=== PATIENT | female | born 1980 | race Hispanic/Latino ===

== ENCOUNTER 2018-10-30 16:03 | Emergency (ER) | payer OTHER ==
[~2018-10-30] VITALS: Ht 167.6 cm; Wt 98.9 kg
--- NOTE | 2018-10-30 16:29 | NUR ---
NOTIFIED [facility] TO PAGE ULTRASOUND FOR GALBLADDER ULTRASOUND.
[2018-10-30 16:39] LABS: BILIRUBIN,URINE NEGATIVE (NEGATIVE); CLARITY,URINE SL CLOUDY (CLEAR); COLOR,URINE YELLOW (YELLOW); KETONES,URINE TRACE (NEGATIVE); LEUKOCYTE ESTERASE ,URINE TRACE (NEGATIVE); NITRITE,URINE NEGATIVE (NEGATIVE); PROTEIN,URINE DIPSTICK NEGATIVE (NEGATIVE); URINE UROBILINOGEN 0.2 mg/dL (0.2 - 1)
[2018-10-30 16:46] LABS: BACTERIA,URINE FEW /HPF; EPITHELIAL CELLS,URINE MODERATE /LPF; RBC,URINE 0-5 /HPF (0-5)
--- NOTE | 2018-10-30 18:08 | NUR ---
PT REQUESTING TO LEAVE AMA; [facility] [place] DISCUSSING RISKS AND BENEFITS OF LEAVING AMA DURING EVAL, PT VERBALIZES UNDERSTANDING AT THIS TIME, PT STATES "I JUST DON'T WANT THEM TAKING BLOOD BEFORE THE ULTRASOUND RIGHT NOW"; PT AND [employer] [place] IN AGREEMENT TO HAVE SONOGRAM BEFORE IMPLEMENTING FURTHER INTERVENTIONS AT THIS TIME, PT AND FAMILY VERBALIZE UNDERSTANDING OF CURRENT PLAN OF CARE.
--- NOTE | 2018-10-30 18:09 | NUR ---
PRESS SET UP PERSON AT BEDSIDE FOR ULTRASOUND AT THIS TIME.
--- NOTE | 2018-10-30 18:51 | Diagnostic Imaging Report ---
EXAM: Right Upper Quadrant Ultrasound INDICATION: ^ABD PAIN ^Y COMPARISON: None. TECHNIQUE: Transverse and longitudinal images of the right upper abdomen were obtained. FINDINGS: Liver: Size: 14 cm in the right midclavicular line, normal Appearance: Increased echogenicity, smooth contour Mass: No focal masses Gallbladder: Stones/Sludge: Multiple gallstones. Wall: 0.2 cm Appearance: No pericholecystic fluid or hydrops. Sonographic Garcia's Sign: Negative Bile Ducts: Intrahepatic Ducts: No dilatation Extrahepatic Ducts: Common bile duct measures 0.4 cm, no dilatation Pancreas: Visualized pancreas is unremarkable. Right Kidney: Size: 11.7 cm Echogenicity: Normal Parenchymal thickness: Normal Collecting system: No hydronephrosis Stones: None Cyst/Mass: None Vessels: Aorta: Visualized portions are normal Inferior Vena Cava: Visualized portions are normal Main Portal Vein: 1.1 cm, normal size with hepatopetal flow. Free Fluid: No ascites or pleural effusion IMPRESSION: Hepatic steatosis. Cholelithiasis without evidence of cholecystitis. Signed by: Dr. Arthur Pollard MD on 10/30/2018 6:47 PM
[2018-10-30 20:18] VITALS: BP 123/76
[2018-11-10] MEDS ORDERED: METFORMIN HCL500 MG PO (10:16)
[2018-11-10] MEDS ORDERED: DIOVAN HCT 80-1 EACH PO (10:16)
[2018-11-10] MEDS ORDERED: trulicity SC (10:16)
== END 2018-10-30 20:10 | disposition home or self-care (01) ==
LOC: ER 16:03
DX: R10.11 Right upper quadrant pain (principal); R11.2 Nausea with vomiting, unspecified; R19.7 Diarrhea, unspecified; K80.70 Calculus of gallbladder and bile duct without cholecystitis without obstruction; I10 Essential (primary) hypertension; E11.9 Type 2 diabetes mellitus without complications
CPT/HCPCS: 76705; 81001; 93005; 99283

== ENCOUNTER → 2018-11-12 | Day surgery (SDC) | payer OTHER ==
[2018-11-10 11:11] LABS: BILIRUBIN,URINE NEGATIVE (NEGATIVE); CLARITY,URINE CLEAR (CLEAR); COLOR,URINE YELLOW (YELLOW); KETONES,URINE NEGATIVE (NEGATIVE); LEUKOCYTE ESTERASE ,URINE TRACE (NEGATIVE); NITRITE,URINE NEGATIVE (NEGATIVE); PROTEIN,URINE DIPSTICK NEGATIVE (NEGATIVE); URINE UROBILINOGEN 0.2 mg/dL (0.2 - 1)
[2018-11-10 11:18] LABS: BASOPHILS % 0.2 % (0.0-1.0); EOSINOPHILS # (AUTO) 0.1 (0.0-0.4); EOSINOPHILS % 1.4 % (0.0-6.0); HEMATOCRIT 39.1 % (34.2-44.1); HEMOGLOBIN 13.2 g/dL (12.0-16.0); LYMPHOCYTES # (AUTO) 1.2 (1.0-3.2); LYMPHOCYTES % 21.8 % (18.0-39.1); MEAN CORPUSCULAR HEMOGLOBIN 28.6 pg (28-32); MEAN CORPUSCULAR HGB CONC 33.8 g/dL (31-35); MEAN CORPUSCULAR VOLUME 84.6 fL (81-99); MONOCYTES # (AUTO) 0.4 (0.2-0.8); MONOCYTES % 7.4 % (4.4-11.3); NEUTROPHILS # (AUTO) 3.8 (2.1-6.9); NEUTROPHILS % 68.8 % (38.7-80.0); PLATELET COUNT 276 x10e3/uL (140-360); RED BLOOD COUNT 4.62 x10e6/uL (3.6-5.1); RED CELL DISTRIBUTION WIDTH 11.9 % (11.7-14.4)
[2018-11-10 11:38] LABS: ALANINE AMINOTRANSFERASE 33 IU/L (0-55); ALBUMIN 4.3 g/dL (3.5-5.0); ALBUMIN/GLOBULIN RATIO 1.3 (0.8-2.0); ALKALINE PHOSPHATASE 60 IU/L (40-150); ANION GAP 12.4 mmol/L (8-16); BLOOD UREA NITROGEN 9 mg/dL (7-26); BUN/CREATININE RATIO 12 (6-25); CALCIUM 9.5 mg/dL (8.4-10.2); CARBON DIOXIDE 29 mmol/L (22-29); CHLORIDE 101 mmol/L (98-107); CREATININE, SERUM 0.74 mg/dL (0.57-1.11); EST GLOMERULAR FILTRATION RATE > 60 ML/MIN (60-); GLUCOSE 117 mg/dL (74-118); POTASSIUM 4.4 mmol/L (3.5-5.1); SODIUM 138 mmol/L (136-145)
[~2018-11-12] MED LIST: BUPIVACAINE 0.25%/EPI 30ML SDV INJ ONE; DEXAMETHASONE SOD PHOS INJ 4 MG/ML VIAL ONE; DIOVAN HCT 80-1 EACH PO; FENTANYL CITRATE/PF 100MCG/2 ML INJ ONE; KETOROLAC TROMETHAMINE 30 MG/ML VIAL ONE; LIDOCAINE HCL 2% LOCAL INJ 5 ML SDV VIAL INJ ONE; METFORMIN HCL500 MG PO; METOCLOPRAMIDE HCL 10 MG/2ML VIAL ONE; MIDAZOLAM HCL 2 MG/2 ML VIAL ONE; ONDANSETRON HCL INJ 2MG/ML 2ML 2 MG/ML VIAL ONE; PROPOFOL IV EMULSION 10 MG/ML 20 ML VIAL ONE; ROCURONIUM BROMIDE 10 MG/ML 5ML VIAL ONE; SEVOFLURANE INHAL SOLN 250 ML PEN BTL ONE; trulicity SC
--- OUTSIDE RECORDS SUMMARY | 2018-11-12 06:58 | XMS REPORT ---
[facility] Address Unknown Phone Unavailable Care Team Providers Care Heel Seat Flap Stapler Name Role Phone APARNA Kelvin JEANETTE Unavailable Unavailable Problems This patient has no known problems. Allergies, Adverse Reactions, Alerts This patient has no known allergies or adverse reactions. Medications This patient has no known medications. 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 TECHNIQUE: Transverse and longitudinal images of the right upper abdomen were obtained. FINDINGS: Liver: Size: 14 cm in the right midclavicular line, normal Appearance: Increased echogenicity, smooth contour Mass: No focal masses Gallbladder: Stones/Sludge: Multiple gallstones. Wall: 0.2 cm Appearance: No pericholecystic fluid or hydrops. Sonographic Garcia's Sign: Negative Bile Ducts: Intrahepatic Ducts: No dilatation Extrahepatic Ducts: Common bile duct measures 0.4 cm, no dilatation Pancreas: Visualized pancreas is unremarkable. Right Kidney: Size: 11.7 cm Echogenicity: Normal Parenchymal thickness: Normal Collecting system: No hydronephrosis Stones: None Cyst/Mass: None Vessels: Aorta: Visualized portions are normal Inferior Vena Cava: Visualized portions are normal Main Portal Vein: 1.1 cm, normal size with hepatopetal flow. Free Fluid: No ascites or pleural effusion IMPRESSION: Hepatic steatosis. Cholelithiasis without evidence of cholecystitis. Signed by: Dr. Arthur Lott MD on 10/30/2018 6:47 PM Dictated By: ARTHUR LOTT MD 46 Transcribed By: MATTEO on 10/30/181846 COPY TO: JALYN POLANCO NP
[2018-11-12] MEDS: HYDROMORPHONE 2MG/ML 2 MG/ML ML ONE (11:26)
[2018-11-12] MEDS: ACETAMINOPHEN/CODEINE 300MG - 30MG TAB ONE (11:54)
[2018-11-12] MEDS: ONDANSETRON HCL INJ 2MG/ML 2ML 2 MG/ML VIAL ONE (12:11)
[2018-11-12 12:25] VITALS: BP 137/76
--- NOTE | 2018-11-12 12:30 | Operative Report ---
DATE OF PROCEDURE: SURGEON: Chi Poole MD PREOPERATIVE DIAGNOSES: Cholelithiasis, biliary colic, diabetes, and obesity. POSTOPERATIVE DIAGNOSES: Cholelithiasis, biliary colic, diabetes, and obesity. PROCEDURE PERFORMED: Laparoscopic cholecystectomy. ANESTHESIA: General. ESTIMATED BLOOD LOSS: Minimal. DRAINS: None. COMPLICATIONS: None. 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 DESCRIPTION OF PROCEDURE: With the patient lying on the operative table in the supine position and after administration of general endotracheal anesthesia, she was prepped and draped for laparoscopic cholecystectomy. The procedure was begun by establishing the pneumoperitoneum in the umbilical site after stab wound was made in the location and saline drop test was performed and pneumoperitoneum was insufflated to 15 mm of pressure and then the 10/11 trocar placed in that location. The patient was then rotated to the left and with the head up and a 10 mm subxiphoid port was also placed. Two lateral working ports, 5 mm each were placed in the right upper quadrant, right anterior axillary line. The gallbladder was then retracted cephalad using grasping forceps and the dissection was begun high in the neck of the gallbladder until we identified the gallbladder within the fatty common duct junction with the cystic duct. Cystic duct was not dilated. We then clipped the cystic duct distally three times then once proximal and transected. Then we identified the cystic artery both anterior and posterior branches and transected them between the titanium clips also and electrocautery. Then we took down the gallbladder bed using electrocautery dissection. The gallbladder was detached, placed in an endobag and removed. It contained multiple stones. After we did that, we then reinspected the operative field. There was some oozing coming from the gallbladder bed fossa, which was cauterized, it was minimal. After we did that, we copiously irrigated the right upper quadrant until the effluent fluid was clear. There had been several stones there spilled into the operative field during the procedure and those were removed completely and then we released the pneumoperitoneum and closed the wound using 0-Vicryl for the umbilical fascia, 3-0 Vicryl for the subcutaneous tissue in that location as well as the subxiphoid port and the skin of all the ports was closed with kt. 0.25% Marcaine with epinephrine was used as local block at the end of the case. The patient tolerated the procedure well, taken to recovery room in stable condition. MD CLAYTON Swanson/AMAURY /[id number]
--- NOTE | 2018-11-26 10:00 | Operative Report ---
DATE OF PROCEDURE: 11/12/2018 SURGEON: Chi Poole MD ADDENDUM: BILINGUAL RESEARCH INTERVIEWER: Cyn Barakat, licensed surgical coder. Chi Poole MD PJR/MODL /[id number]
== END | disposition home or self-care (01) ==
LOC: OR 06:56
PROVIDERS: ATTEND Surgery
DX: K80.10 Calculus of gallbladder with chronic cholecystitis without obstruction (principal); E11.9 Type 2 diabetes mellitus without complications; I10 Essential (primary) hypertension; Z87.891 Personal history of nicotine dependence; Z83.3 Family history of diabetes mellitus; Z84.89 Family history of other specified conditions; Z82.49 Family history of ischemic heart disease and other diseases of the circulatory system; E66.9 Obesity, unspecified; Z01.810 Encounter for preprocedural cardiovascular examination; Z01.812 Encounter for preprocedural laboratory examination; Z79.4 Long term (current) use of insulin
CPT/HCPCS: 36415; 80053; 81003; 81025; 85025; 88304; C1766; J1100; J1885; J2001; J2250; J2405; J2765; J3010

== ENCOUNTER 2020-11-02 16:55 | Emergency (ER) | payer OTHER ==
[~2020-11-02] VITALS: Ht 170.2 cm; Wt 102.1 kg
[~2020-11-02 16:55] MED LIST changes: -BUPIVACAINE 0.25%/EPI 30ML SDV INJ ONE; -DEXAMETHASONE SOD PHOS INJ 4 MG/ML VIAL ONE; -FENTANYL CITRATE/PF 100MCG/2 ML INJ ONE; -KETOROLAC TROMETHAMINE 30 MG/ML VIAL ONE; -LIDOCAINE HCL 2% LOCAL INJ 5 ML SDV VIAL INJ ONE; -METOCLOPRAMIDE HCL 10 MG/2ML VIAL ONE; -MIDAZOLAM HCL 2 MG/2 ML VIAL ONE; -ONDANSETRON HCL INJ 2MG/ML 2ML 2 MG/ML VIAL ONE; -PROPOFOL IV EMULSION 10 MG/ML 20 ML VIAL ONE; -ROCURONIUM BROMIDE 10 MG/ML 5ML VIAL ONE; -SEVOFLURANE INHAL SOLN 250 ML PEN BTL ONE
[2020-11-02] MEDS ORDERED: HYDROXYZINE HCL25 MG (17:34)
[2020-11-02] MEDS ORDERED: SERTRALINE HCL100 MG (17:34)
== END 2020-11-02 17:49 | disposition home or self-care (01) ==
LOC: ER 17:40
DX: R53.83 Other fatigue (principal); T43.225A Adverse effect of selective serotonin reuptake inhibitors, initial encounter; I10 Essential (primary) hypertension; E11.9 Type 2 diabetes mellitus without complications
CPT/HCPCS: 99282